=== PATIENT | male | born 1970 | race Caucasian/White ===

== ENCOUNTER 2019-08-02 13:56 | Emergency (ER) | payer OTHER ==
[~2019-08-02] VITALS: Ht 177.8 cm; Wt 90.6 kg
[2019-08-02 13:59] VITALS: BP 113/77
[2019-08-02] MEDS ORDERED: BUPIVACAINE/PF 0.5% ONE (14:28)
[2019-08-02] MEDS ORDERED: LIDOCAINE-MPF 1%, 5ML ONE (14:28)
[2019-08-02] MEDS ORDERED: NEOSPORIN OINT. PKT 1 PACKET ONE ×2 (14:42→14:51)
--- NOTE | 2019-08-02 14:42 | NUR ---
PROVIDER GIVEN LIDO AND BUPIVICANIE AT BEDSIDE AND ADMINISTERED BY AMY EATON.
[2019-08-02] MEDS ORDERED: BUPIVACAINE/PF 0.5% INFIL ONE (15:00)
[2019-08-02] MEDS ORDERED: LIDOCAINE-MPF 1%, 5ML INFIL ONE (15:00)
[2019-08-02] MEDS ORDERED: DIPH,PERTUSS(ACELL),TET VAC/PF 0.5 ML IM-VACC ONE ×2 (15:19→15:30)
== END 2019-08-02 15:41 | disposition home or self-care (01) ==
LOC: ED 15:35
DX: S68.522A Partial traumatic transphalangeal amputation of left thumb, initial encounter (principal); G89.11 Acute pain due to trauma; W26.8XXA Contact with other sharp object(s), not elsewhere classified, initial encounter; Y93.89 Activity, other specified; Y92.69 Other specified industrial and construction area as the place of occurrence of the external cause; Y99.0 Civilian activity done for income or pay
CPT/HCPCS: 64450; 90471; 90715; 99284

== ENCOUNTER → 2019-09-25 | Outpatient (CLI) | payer OTHER | END | disposition home or self-care (01) | LOC: RAD 13:10 | PROVIDERS: ATTEND Chiropractor | DX: M43.17 Spondylolisthesis, lumbosacral region (principal); M48.07 Spinal stenosis, lumbosacral region; M99.01 Segmental and somatic dysfunction of cervical region; M99.02 Segmental and somatic dysfunction of thoracic region; M99.03 Segmental and somatic dysfunction of lumbar region; M99.04 Segmental and somatic dysfunction of sacral region | CPT/HCPCS: 72040; 72072; 72100; 72170 ==

== ENCOUNTER 2020-05-29 14:30 | Day surgery (SDC) | payer OTHER ==
[~2020-05-29] VITALS: Ht 177.8 cm; Wt 89.2 kg
[2020-05-29] MEDS ORDERED: LACTATED RINGERS 1,000 ML IV SCH (14:59)
[2020-05-29] MEDS ORDERED: CHLORHEXIDINE 15 ML UDC MM ONE (15:00)
[2020-05-29] MEDS ORDERED: SERT-238 PO (15:06)
[2020-05-29] MEDS ORDERED: OLAN10TA9 PO (15:06)
[2020-05-29] MEDS ORDERED: HYDR-3241 PO (15:06)
[2020-05-29] MEDS ORDERED: [UNRECOGNIZED DRUG - OTHER] PO (15:06)
[2020-05-29 15:35] VITALS: BP 123/77
[2020-05-29] MEDS ORDERED: EPINEPHRINE 1 MG/ML, 1ML ONE (15:39)
[2020-05-29] MEDS ORDERED: BUPIVACAINE/PF 0.25% ONE (15:39)
[2020-05-29] MEDS ORDERED: BUPIVACAINE/PF 0.5% ONE (15:44)
[2020-05-29] MEDS ORDERED: MIDAZOLAM 1 MG/ML, 2ML ONE (16:43)
[2020-05-29] MEDS ORDERED: FENTANYL PF 250 MCG/5ML ONE (16:43)
[2020-05-29] MEDS ORDERED: ROCURONIUM 10MG/ML,5ML ONE (16:44)
[2020-05-29] MEDS ORDERED: SUCCINYLCHOLINE 20 MG/ML, 10ML ONE (16:44)
[2020-05-29] MEDS ORDERED: PROPOFOL 10 MG/ML, 20ML ONE (16:58)
[2020-05-29] MEDS ORDERED: DEXAMETHASONE 4 MG/ML, 1ML ONE (17:05)
[2020-05-29] MEDS ORDERED: CEFAZOLIN 1,000 MG ONE (17:08)
[2020-05-29] MEDS ORDERED: KETOROLAC 30 MG/1 ML ONE (17:18)
[2020-05-29] MEDS ORDERED: ONDANSETRON 2MG/ML, 2ML ONE (17:29)
[2020-05-29] MEDS ORDERED: FENTANYL PF 100 MCG/2ML IV PRN (17:30)
[2020-05-29] MEDS ORDERED: hydrALAzine 20 MG/ML, 1ML IV PRN (17:30)
[2020-05-29] MEDS ORDERED: HYDROmorphone 1 MG/ML, 1ML INJ IVPush PRN (17:30)
[2020-05-29] MEDS ORDERED: LABETALOL 5MG/ML, 20ML IV PRN (17:30)
[2020-05-29] MEDS ORDERED: ONDANSETRON 2MG/ML, 2ML IVPush PRN (17:30)
[2020-05-29] MEDS ORDERED: MEPERIDINE/PF 25MG/0.5ML IVPush PRN (17:30)
[2020-05-29] MEDS ORDERED: PROMETHAZINE 25 MG/ML, 1ML IVPush PRN (17:30)
[2020-05-29] MEDS ORDERED: OXYcodone 5 MG/5 ML ORAL.SOL UDC PO PRN (17:30)
[2020-05-29] MEDS ORDERED: ACETAMINOPHEN 325 MG TABLET PO PRN (17:30)
[2020-05-29] MEDS ORDERED: OXYcodone 5 MG/5 ML ORAL.SOL UDC ONE (18:12)
[2020-05-29] MEDS ORDERED: ACETAMINOPHEN 650 MG/20.3 ML UDC ONE (18:12)
[2020-05-29] MEDS ORDERED: OXYcodone/APAP 5/325MG TABLET PO PRN (19:30)
[2020-05-29] MEDS ORDERED: ONDANSETRON 2MG/ML, 2ML IV PRN (19:30)
[2020-05-29] MEDS ORDERED: HYDROmorphone 1 MG/ML, 1ML INJ IM PRN (19:30)
[2020-05-29] MEDS ORDERED: KETOROLAC 30 MG/1 ML IV SCH (19:30)
== END 2020-05-29 20:46 | disposition home or self-care (01) ==
LOC: OR 14:30 → 4NE 18:56 → OR 20:46
PROVIDERS: ATTEND Orthopaedic Surgery
DX: S42.022A Displaced fracture of shaft of left clavicle, initial encounter for closed fracture (principal); Z20.828 Contact with and (suspected) exposure to other viral communicable diseases; Z79.899 Other long term (current) drug therapy; Z88.2 Allergy status to sulfonamides; V87.8XXA Person injured in other specified noncollision transport accidents involving motor vehicle (traffic), initial encounter; Y93.55 Activity, bike riding; Y92.89 Other specified places as the place of occurrence of the external cause; Y99.8 Other external cause status
CPT/HCPCS: 23515; 73000; 87635; C1713; J0171; J0330; J0690; J1100; J1885; J2250; J2405; J2704; J3010; 76000; G0378; J3490